=== PATIENT | female | born 1990 | race Caucasian/White ===

== ENCOUNTER 2021-05-03 15:51 | Emergency (ER) | payer MEDICAID ==
[~2021-05-03] VITALS: Ht 152.4 cm; Wt 54.0 kg
[2021-05-03] MEDS ORDERED: KETOROLAC 15MG/ML VIAL IM ONE (17:00)
[2021-05-03] MEDS ORDERED: IBUPROFEN 600MG TABLET PO ONE (17:00)
[2021-05-03] MEDS ORDERED: HYDROCODONE/ACETAMINOPHEN 5/325MG TABLET PO ONE (18:30)
[2021-05-03] MEDS ORDERED: HYDR-4001 MT (19:18)
[2021-05-03] MEDS ORDERED: NAPR500T7 MT (19:20)
[2021-05-03 19:46] VITALS: BP 116/66
[2021-05-04] MEDS ORDERED: HYDR-4001 MT (12:24)
== END 2021-05-03 19:47 | disposition home or self-care (01) ==
LOC: ER 15:51
DX: M79.671 Pain in right foot (principal)
CPT/HCPCS: 29515; 73610; 73630; 99284